=== PATIENT | male | born 1950 | race African-American/Black ===

== ENCOUNTER 2020-07-29 19:21 | Emergency (ER) | payer OTHER ==
[~2020-07-29] VITALS: Ht 180.3 cm; Wt 108.9 kg
[~2020-07-29 19:21] MED LIST: ASPIRIN81 M2 PO; CALTRATE-600 W1 EACH PO; FISH OIL 1,0001 EAC9 PO; MULTIVITAMINS PO
[2020-07-29] MEDS ORDERED: CRESTOR40 MG PO (19:31)
[2020-07-29] MEDS ORDERED: KRILL OIL500 MG PO (19:31)
[2020-07-29] MEDS ORDERED: LIPITOR40 MG PO (19:39)
[2020-07-29 21:01] VITALS: BP 137/79
== END 2020-07-29 21:02 | disposition home or self-care (01) ==
LOC: ER 19:21
DX: S00.83XA Contusion of other part of head, initial encounter (principal); Z79.82 Long term (current) use of aspirin; Z79.899 Other long term (current) drug therapy; V49.88XA Car occupant (driver) (passenger) injured in other specified transport accidents, initial encounter; Y93.89 Activity, other specified; Y92.413 State road as the place of occurrence of the external cause; Y99.9 Unspecified external cause status